=== PATIENT | female | born 1960 | race Caucasian/White ===

== ENCOUNTER → 2017-08-25 16:48 | Outpatient (CLI) | payer OTHER, SELFPAY ==
--- NOTE | 2017-08-25 16:53 | MM_ITS ---
MM Dig screening mamm BI w/CAD CAD Screening COMPARISON: Digital mammograms 08/19/2016 and 08/13/2015 INDICATION: There is no personal or family history of breast cancer TECHNIQUE: Standard CC and MLO images were obtained. R2 CAD reviewed. FINDINGS: Moderate scattered fibroglandular densities are seen in both breast and the findings are bilateral and symmetrical. There are few benign-appearing calcination is in each breast. There is no suspicious lesion and there are no suspicious microcalcifications. IMPRESSION: Fibrofatty parenchyma with no suspicious lesion seen recommend yearly follow-up BI-RADS Category: 2 Benign Finding(s) RECOMMENDED FOLLOW-UP: 1YR - 1 YEAR FOLLOW-UP (A letter has been sent to the patient regarding results of the study.)
== END ==
PROVIDERS: Family Provider Internal Medicine Adolescent Medicine; PCP Obstetrics & Gynecology Gynecology; Visit Provider Obstetrics & Gynecology Gynecology
DX: Z12.31 Encounter for screening mammogram for malignant neoplasm of breast (principal)
CPT/HCPCS: 77067

== ENCOUNTER 2018-02-04 15:00 | Outpatient (RCR) | payer BC, SELFPAY | END 2018-02-04 15:01 | disposition home or self-care (01) | LOC: PT 15:00 | PROVIDERS: Visit Provider Internal Medicine Adolescent Medicine | DX: M54.31 Sciatica, right side (principal) | CPT/HCPCS: 97010; 97012; 97014; 97033; 97035; 97110; 97140; 97163; G0283 ==

== ENCOUNTER → 2018-02-22 16:30 | Outpatient (CLI) | payer BC, SELFPAY ==
--- NOTE | 2018-02-22 16:36 | XR_ITS ---
EXAM: XR lumbar spine min 4V HISTORY: Right-sided hip and back pain ORDERING PHYSICIAN: Peter Olson MD PATIENT AGE: 57 years COMPARISON: None FINDINGS: Minimal dextro scoliosis of the lumbar spine. Facet arthritic changes are present at L4-5 and L5-S1. No fracture or dislocation. No lytic changes. There is degenerative disc disease at L5-S1 with 10 mm anterolisthesis of L5. IMPRESSION: Lumbar spondylosis with facet arthritic change and degenerative disc disease as described above with 10 mm anterolisthesis of L5 on S1
== END ==
PROVIDERS: PCP Internal Medicine Adolescent Medicine; Visit Provider Internal Medicine Adolescent Medicine
DX: M54.31 Sciatica, right side (principal)
CPT/HCPCS: 72110

== ENCOUNTER → 2018-08-29 14:59 | Outpatient (CLI) | payer BC, SELFPAY ==
--- NOTE | 2018-08-29 15:03 | MM_ITS ---
MM Dig screening mamm BI w/CAD CAD Screening COMPARISON: Digital mammograms with CAD 08/25/2017 and 08/19/2016 INDICATION: There is no personal or family history of breast cancer TECHNIQUE: Standard CC and MLO images were obtained. R2 CAD reviewed. FINDINGS: Moderate fibroglandular densities are seen in the central portions of both breasts and the findings are bilateral and symmetrical. There are few benign-appearing microcalcifications right breast. There is no suspicious lesion and there are no suspicious microcalcifications IMPRESSION: Stable exam with no suspicious lesion seen BI-RADS Category: 2 Benign Finding(s) RECOMMENDED FOLLOW-UP: 1YR - 1 YEAR FOLLOW-UP (A letter has been sent to the patient regarding results of the study.)
== END ==
PROVIDERS: PCP Internal Medicine Adolescent Medicine; Visit Provider Obstetrics & Gynecology Gynecology
DX: Z12.31 Encounter for screening mammogram for malignant neoplasm of breast (principal)
CPT/HCPCS: 77067

== ENCOUNTER 2019-01-07 17:13 | Outpatient (CLI) | payer BC, SELFPAY ==
--- NOTE | 2019-01-07 17:16 | PC.NURSE ---
HERE FOR TETNUS INJECTION AFTER SCRATCHING ARM ON A OLD NADINE FENCE
[2019-01-07 17:17] VITALS: BMI 23.6
== END 2019-01-07 17:25 | disposition home or self-care (01) ==
LOC: UTC.OUT 17:15
PROVIDERS: PCP Internal Medicine Adolescent Medicine; Visit Provider Nurse Practitioner
DX: Z23 Encounter for immunization (principal)
CPT/HCPCS: 90715

== ENCOUNTER → 2019-09-07 14:30 | Outpatient (CLI) | payer BC, SELFPAY ==
--- NOTE | 2019-09-07 14:35 | MM_ITS ---
PROCEDURE: MM DIG SCREENING MAMM BI W/CAD CLINICAL INDICATION: SCREENING There is no personal or family history of breast cancer COMPARISON: [facility] DIG MAMM-SCREEN SUKUMAR W/CAD from 08/19/2016 [facility] MM Dig screening mamm BI w/CAD from 08/25/2017 [facility] MM Dig screening mamm BI w/CAD from 08/29/2018 TECHNIQUE: Standard CC and MLO images and 3D Tomosynthesis was obtained. R2 CAD reviewed. FINDINGS: Moderate fibroglandular densities are seen in the central portions of both breasts. There is a benign-appearing calcification right breast. Javier images were reviewed. There is no suspicious lesion and no suspicious microcalcifications. IMPRESSION: Fibrofatty parenchyma with no suspicious lesions seen BI-RAD Category: 1 Negative FOLLOW-UP: 1YR 1 Year Follow-up (A letter has been sent to the patient regarding results of the study.) Dictated by: Dr. Melvin Pimentel MD 09/09/2019 20:[address] Melvin Pimentel MD in [place] 09/09/2019 20:51
--- NOTE | 2019-09-07 14:36 | XR_ITS ---
PROCEDURE: XR DEXA AXIAL SKELETON CLINICAL HISTORY: POST MENOPAUSAL COMPARISON: No exams were available for comparison FINDINGS: Osteopenia of the left wrist with BM D 33 percent at 0.621 grams/centimeters sq with a T-score of -1.2 Osteopenia of the left femoral neck with a BMD of 0.598 grams/centimeters sq and a T-score -2.3 Osteopenia of the right femoral neck with a BMD of 0.578 grams/centimeters sq and a T-score of -2.4 IMPRESSION: Osteopenia with moderate fracture risk. Treatment advised. Suggest follow-up exam in 2 years Dictated by: Breezy Vasquez MD 09/07/2019 15:27 Electronically signed by Breezy Vasquez MD in [place] 09/07/2019 15:27
== END ==
PROVIDERS: PCP Internal Medicine Adolescent Medicine; Visit Provider Obstetrics & Gynecology Gynecology
DX: Z12.31 Encounter for screening mammogram for malignant neoplasm of breast (principal); Z13.820 Encounter for screening for osteoporosis
CPT/HCPCS: 77063; 77067; 77080

== ENCOUNTER 2020-09-20 11:04 | Emergency (ER) | payer BC, SELFPAY ==
[2020-09-20 11:19] VITALS: BP 110/77; PULSE 71; RESP 19; TEMP 36.8; O2SAT 99; BMI 23.9
--- NOTE | 2020-09-20 11:20 | HMH.EDUTC ---
[facility] [place] Disposition Clinical Impression: TMJ (dislocation of temporomandibular joint) Qualifiers: Encounter type: initial encounter Qualified Code(s): S03.00XA - Dislocation of jaw, unspecified side, initial encounter Sinusitis Qualifiers: Sinusitis location: maxillary Chronicity: acute Recurrence: non-recurrent Qualified Code(s): J01.00 - Acute maxillary sinusitis, unspecified Disposition: Home, Self-Care Condition on Discharge: Good Instructions: DI for Sinusitis, DI for Temporomandibular Disorder Additional Instructions: Follow up with Dr Olson if not improving Prescriptions: Amoxicillin [Amoxicillin 875MG Tab] 875 mg PO Q12H #20 tab Transmission Status: [facility] methylPREDNISolone [Medrol 4mg tab] 4 mg PO DIRECTED #21 tab Transmission Status: Pending to [facility] Referrals: Peter Olson MD [Primary Care Provider] - Time of Disposition: 11:28 Medical Decision Making - Travis Inquiry Pt receiving controlled substance: No [facility] [place] HPI - General Stated complaint: ear and jaw pain Time Seen by Provider: 09/20/20 11:24 - History of Present Illness Provider Complaint: Right ear/jaw/sinus pain X 3 days. Started 3 nights ago when she laid down. Went to dentist the next day and he thinks she might be grinding her teeth. She also has been taking OTC sinus meds with a little relief. Onset (ago): day(s) (3) Location: mouth Exacerbating factors: eating Associated symptoms: denies other symptoms Treatments prior to arrival: none - Related Data Home Medications Medication Instructions Recorded Confirmed escitalopram oxalate 10 mg tablet 10 mg PO ONCE 01/13/18 03/08/18 levothyroxine 88 mcg capsule 88 mcg PO ONCE 01/13/18 03/08/18 Gabapentin [Gabapentin 100mg Cap] 100 mg PO BID 03/08/18 03/08/18 raNITIdine HCL [Ranitidine HCl] 150 mg PO DAILY 03/08/18 03/08/18 Previous Rx's Medication Instructions Recorded Cefpodoxime Proxetil 200 mg PO BID #20 tab 03/08/18 Phenazopyridine HCl [Pyridium 200 mg PO TID PRN #6 tab 03/08/18 200mg Tablet] Amoxicillin [Amoxicillin 875MG 875 mg PO Q12H #20 tab 09/20/20 Tab] methylPREDNISolone [Medrol 4mg 4 mg PO DIRECTED #21 tab 09/20/20 tab] Allergies Allergy/AdvReac Type Severity Reaction Status Date / Time ciprofloxacin [From Cipro] Allergy Verified 01/13/18 12:04 Sulfa (Sulfonamide Allergy hives Verified 01/13/18 12:04 Antibiotics) [facility] History - Hepatitis A Screen Attestation statement:: This patient has been screened for Hepatitis A risk factors. I have reviewed the patient's past medical history: Yes Medical History: Reports:: Urinary Tract Infection Denies:: Diabetes Mellitus Type 2, Hypertension Other Medical History: Reports: Thyroid Disease Other Surgeries: Yes: Cholecystectomy, Thyroidectomy, Tubal Ligation, Other (gallbladder surgery) - Social History Smoking Status: Never smoker Alcohol Intake: never Family Hx:: No significant family history ROS Obtained: Yes All systems reviewed & no additional complaints - ENT Ears, Nose, Mouth, and Throat: Reports otalgia, Reports sinus pain Physical Exam - General General appearance: alert, in no apparent distress - Head Head exam: normocephalic - Eye Eye exam: Present: PERRL - Expanded ENT Exam TM/Canal exam: Bilateral TM: effusion Nose exam: Present: sinus tenderness (right maxilary) Mouth exam: Present: other (right TMJ tenderness with opening) Teeth exam: Present: normal inspection - Neck Neck exam: Absent: lymphadenopathy - Chest Chest inspection: Present: normal inspection - Respiratory Respiratory exam: Present: normal lung sounds bilaterally - Cardiovascular Cardiovascular exam: Present: regular rate, normal rhythm - Neurological Exam Neurological exam: Present: alert, oriented X3 - Psychiatric Psychiatric exam: Present: normal affect, normal mood - Skin Skin exam: Present: warm, dry
[2020-09-20 11:32] VITALS: BP 110/77; PULSE 71; RESP 19; TEMP 36.8; O2SAT 99
== END 2020-09-20 11:33 | disposition home or self-care (01) ==
PROVIDERS: Emergency Provider Physician Assistant; PCP Internal Medicine Adolescent Medicine
DX: S03.01XA Dislocation of jaw, right side, initial encounter (principal); J01.00 Acute maxillary sinusitis, unspecified; E03.9 Hypothyroidism, unspecified; Z88.2 Allergy status to sulfonamides
CPT/HCPCS: 99202; G0463

== ENCOUNTER → 2020-10-22 15:18 | Outpatient (CLI) | payer BC, SELFPAY ==
--- NOTE | 2020-10-22 15:20 | MM_ITS ---
PROCEDURE: MM DIG SCREENING MAMM BI W/CAD Digital Breast Tomosynthesis Included CLINICAL INDICATION: SCREENING There is a history of breast cancer patient's mother diagnosed after menopause. COMPARISON: MG [facility] MM Dig screening mamm BI w/CAD from 08/25/2017 [facility] MM Dig screening mamm BI w/CAD from 08/29/2018 MG MM DIG SCREENING MAMM BI W/CAD from 09/07/2019 TECHNIQUE: Standard CC and MLO images and 3D Tomosynthesis was obtained. R2 CAD reviewed. FINDINGS: Moderate fibroglandular densities are seen in the central portions of both breasts and the findings are bilateral and symmetrical. There are no CAD markings. There are few benign-appearing microcalcifications in each breast. There is no suspicious lesion and no suspicious microcalcifications. IMPRESSION: Moderate breast density with no suspicious lesions seen BI-RAD Category: 2 Benign Finding(s) FOLLOW-UP: 1YR 1 Year Follow-up (A letter has been sent to the patient regarding results of the study.) Dictated by: Dr. Melvin Pimentel MD 10/29/2020 16:19 Dr. Melvin Pimentel MD in [place] 10/29/2020 16:19
== END ==
PROVIDERS: PCP Internal Medicine Adolescent Medicine; Visit Provider Obstetrics & Gynecology Gynecology
DX: Z12.31 Encounter for screening mammogram for malignant neoplasm of breast (principal)
CPT/HCPCS: 77063; 77067

== ENCOUNTER 2021-05-08 13:19 | Emergency (ER) | payer BC, SELFPAY ==
[2021-05-08 13:28] VITALS: BP 129/80; PULSE 65; RESP 16; TEMP 36.9; O2SAT 100; BMI 25.7
--- NOTE | 2021-05-08 14:43 | HMH.EDUTC ---
[facility] [place] Disposition Clinical Impression: Serous otitis media Qualifiers: Chronicity: acute Laterality: bilateral Recurrence: non-recurrent Qualified Code(s): H65.03 - Acute serous otitis media, bilateral Disposition: Home, Self-Care Condition on Discharge: Good Instructions: Middle Ear Infection Additional Instructions: Drink plenty of fluids. Take tylenol or ibuprofen for pain or fever. Take the medications as directed. Follow up with your regular doctor. GO TO THE ER FOR ANY WORSENING SYMPTOMS Prescriptions: methylPREDNISolone [Medrol] 4 mg PO DIRECTED 6 Days #21 packet Transmission Status: Received by [facility] Azithromycin [Z-Jacky 250mg Tab*] 250 mg PO UD DOSE PK #6 tab Transmission Status: Received by [facility] Referrals: Peter Olson MD [Primary Care Provider] - Time of Disposition: 14:47 Medical Decision Making - Medical Records Medical records reviewed: No: I reviewed the patient's medical records. - Travis Inquiry Pt receiving controlled substance: No Vital Signs: 05/08/21 13:28 05/08/21 14:54 Temperature 98.5 F 98.5 F Temperature Source Oral Pulse Rate 65 Pulse Rate [Left] 65 Respiratory Rate 16 18 Blood Pressure 129/80 Blood Pressure [Right Arm] 129/80 Blood Pressure Mean [Right Arm] 96 02 Sat by Pulse Oximetry 100 [facility] [place] HPI - General Stated complaint: left ear ache Time Seen by Provider: 05/08/21 14:43 Mode of Arrival: Ambulatory Source of Information: Patient Limitations: No Limitations Description of Symptoms (Recalled from Triage Doc. by RN): pt c/o a L ear ache x2 days HEENT Symptoms (Recalled from RN notes): Yes (L ear ache) Resp Symptoms (Recalled from RN notes): No Skin Symptoms (Recalled from RN notes): No MS Symptoms (Recalled from RN notes): No Functional Status (Recalled from RN notes): na - History of Present Illness Provider Complaint: She c/o left ear pain for the past 3 days. She also states that sometimes the her ear has sounded muffled. She denies any fever or chills. She has been having some runny nose and post nasal drainage the she attributes to allergies. - Related Data Home Medications Medication Instructions Recorded Confirmed escitalopram oxalate 10 mg tablet 10 mg PO ONCE 01/13/18 03/08/18 levothyroxine 88 mcg capsule 88 mcg PO ONCE 01/13/18 03/08/18 Gabapentin [Gabapentin 100mg Cap] 100 mg PO BID 03/08/18 03/08/18 raNITIdine HCL [Ranitidine HCl] 150 mg PO DAILY 03/08/18 03/08/18 Previous Rx's Medication Instructions Recorded Cefpodoxime Proxetil 200 mg PO BID #20 tab 03/08/18 Phenazopyridine HCl [Pyridium 200 mg PO TID PRN #6 tab 03/08/18 200mg Tablet] Amoxicillin [Amoxicillin 875MG 875 mg PO Q12H #20 tab 09/20/20 Tab] methylPREDNISolone [Medrol 4mg 4 mg PO DIRECTED #21 tab 09/20/20 tab] Azithromycin [Z-Jacky 250mg Tab*] 250 mg PO UD DOSE PK #6 tab 05/08/21 methylPREDNISolone [Medrol] 4 mg PO DIRECTED 6 Days #21 05/08/21 packet Allergies Allergy/AdvReac Type Severity Reaction Status Date / Time ciprofloxacin [From Cipro] Allergy Verified 01/13/18 12:04 Sulfa (Sulfonamide Allergy hives Verified 01/13/18 12:04 Antibiotics) - Worker's Comp Is this a Worker's Comp case?: No H History - Hepatitis A Screen Drug use history?: No High risk sexual behaviors?: No History of sexually transmitted infection?: No Currently employed?: No Childcare worker?: No Do you have indoor plumbing?: Yes Do you have electricity?: Yes Attestation statement:: This patient has been screened for Hepatitis A risk factors. I have reviewed the patient's past medical history: Yes Medical History: Reports:: Cancer (thyroid), Urinary Tract Infection Denies:: Diabetes Mellitus Type 2, Hypertension Other Medical History: Reports: Thyroid Disease Other Surgeries: Yes: Cholecystectomy, Thyroidectomy, Tubal Ligation, Other (gallbladder surgery) - Social History Smoking Sta
[2021-05-08 14:54] VITALS: BP 129/80; PULSE 65; RESP 18; TEMP 36.9
== END 2021-05-08 14:56 | disposition home or self-care (01) ==
PROVIDERS: Emergency Provider Nurse Practitioner Family; PCP Internal Medicine Adolescent Medicine
DX: H65.03 Acute serous otitis media, bilateral (principal); Z85.850 Personal history of malignant neoplasm of thyroid
CPT/HCPCS: 99202; G0463

== ENCOUNTER → 2021-07-03 08:00 | Outpatient (CLI) | payer BC, SELFPAY ==
[2021-07-03 08:57] LABS: Basophils # 0.1 K/mm3 (0-0.2); Eosinophils # 0.3 K/mm3 (0.0-0.4); Eosinophils % 4.6 % (0.1-12.0); Hematocrit 39.2 % (37.0-47.0); Hemoglobin 13.1 g/dL (12.2-16.2); Lymphocytes % 37.1 % (10-50); Mean Corpuscular HGB Conc 33.4 g/dL (31.8-35.4); Mean Corpuscular Hemoglobin 30.7 pg (27.0-31.2); Mean Corpuscular Volume 91.9 fl (81-99); Monocytes # 0.3 K/mm3 (0.1-1.0); Monocytes % 5.3 % (1.7-9.3); Neutrophils # 2.8 K/mm3 (1.8-7.8); Neutrophils % 52.1 % (37.0-80.0); Platelet Count 283 K/mm3 (142-424); Red Blood Count 4.27 M/mm3 (4.20-5.40); Red Cell Distribution Width 13.4 % (11.5-17.5); White Blood Count 5.4 K/mm3 (4.8-10.8)
[2021-07-03 09:39] LABS: Alanine Aminotransferase 25 U/L (12-78); Albumin Level 4.2 g/dl (3.5-5.0); Albumin/Globulin Ratio 1.8 (1.1-1.8); Alkaline Phosphatase 81 U/L (38-126); Anion Gap 6.9 mEq/L (5-15); Aspartate Amino Transferase 34 U/L (14-36); Bilirubin,Total 0.3 mg/dl (0.2-1.3); Blood Urea Nitrogen 19 mg/dl (7-17); Calcium 9.7 mg/dl (8.4-10.2); Carbon Dioxide 27 mmol/L (22.0-30.0); Chloride 108 mmol/L (98-107); Chol/HDL Ratio 3.1 (1-3.5); Cholesterol 235 mg/dl (140-200); Estimated Glomerular Filt Rate 73 ml/min (>60); GFR (African American) 88 ML/MIN (>60); Globulin 2.3 g/dL (1.3-3.2); Glucose 95 mg/dl (74-100); HDL Cholesterol 77 mg/dl (40-60); Potassium 4.9 mmoL/L (3.5-5.1); Sodium 137 mmol/L (136-145); Total Protein,Serum 6.5 g/dl (6.3-8.2); Triglycerides 162 mg/dl (30-150); VLDL Cholesterol 32 mg/dL (0-40)
[2021-07-03 09:51] LABS: Direct LDL Cholesterol 49.78 mg/dL (100-129)
[2021-07-03 09:57] LABS: T4 (Thyroxine) 9.7 ug/dl (5.53-11.0); Triiodothryronine (T3) Uptake 31 % (23.5-40.5)
[2021-07-03 10:10] LABS: Thyroid Stimulating Hormone 0.29 uIU/mL (0.465-4.68)
[2021-07-04 13:18] LABS: RA Latex Turbid. <10.0 IU/mL (<14.0)
[2021-07-05 00:08] LABS: Anti-Cyclic Citrullinated Pept 6 units (0-19)
== END ==
PROVIDERS: Visit Provider Internal Medicine Adolescent Medicine
DX: E89.0 Postprocedural hypothyroidism (principal); E78.5 Hyperlipidemia, unspecified; M12.9 Arthropathy, unspecified
CPT/HCPCS: 36415; 80053; 80061; 84436; 84443; 84479; 85025; 86200; 86431

== ENCOUNTER → 2021-10-27 13:27 | Outpatient (CLI) | payer BC, SELFPAY ==
--- NOTE | 2021-10-27 13:31 | MM_ITS ---
PROCEDURE INFORMATION: Exam: MG Bilateral Screening 3D Mammography Exam date and time: 10/27/2021 1:33 PM Age: 61 years old Clinical indication: Screening examination. Her mother breast cancer at age 84. TECHNIQUE: Imaging protocol: Bilateral Screening tomosynthesis and 2D mammography including computer-aided detection (CAD) when performed. COMPARISON: 1. MG MM DIG SCREENING MAMM BI W/CAD 10/22/2020 3:29 PM 2. MG MM DIG SCREENING MAMM BI W/CAD 09/07/2019 2:49 PM 3. MG [facility] MM Dig screening mamm BI w/CAD 08/29/2018 3:20 PM 4. MG [facility] MM Dig screening mamm BI w/CAD 08/25/2017 4:57 PM FINDINGS: MAMMOGRAPHY: Breast composition: The breast tissue is heterogeneously dense, which may obscure small masses. Mass: None. Architectural distortion: None. Calcifications: No suspicious calcifications. Asymmetric density: None. Skin thickening: None. Axillary adenopathy: None. IMPRESSION: No mammographic evidence of malignancy. Annual screening is recommended unless otherwise clinically indicated. ASSESSMENT: BI-RADS Category 1: Negative
== END ==
PROVIDERS: PCP Internal Medicine Adolescent Medicine; Visit Provider Obstetrics & Gynecology Gynecology
DX: Z12.31 Encounter for screening mammogram for malignant neoplasm of breast (principal)
CPT/HCPCS: 77063; 77067

== ENCOUNTER → 2022-01-06 09:05 | Outpatient (CLI) | payer BC, SELFPAY ==
[2022-01-06 10:07] LABS: Basophils # 0.1 K/mm3 (0-0.2); Basophils % 1.4 % (0.1-2.0); Eosinophils # 0.3 K/mm3 (0.0-0.4); Hematocrit 40.9 % (37.0-47.0); Hemoglobin 13.6 g/dL (12.2-16.2); Lymphocytes # 1.6 K/mm3 (0.7-4.5); Mean Corpuscular HGB Conc 33.2 g/dL (31.8-35.4); Mean Corpuscular Hemoglobin 30.4 pg (27.0-31.2); Mean Corpuscular Volume 91.8 fl (81-99); Mean Platelet Volume 8.4 fl (7.4-10.4); Monocytes # 0.3 K/mm3 (0.1-1.0); Neutrophils # 2.7 K/mm3 (1.8-7.8); Neutrophils % 54.7 % (37.0-80.0); Platelet Count 284 K/mm3 (142-424); Red Blood Count 4.46 M/mm3 (4.20-5.40); Red Cell Distribution Width 13.7 % (11.5-17.5); White Blood Count 4.9 K/mm3 (4.8-10.8)
[2022-01-06 10:19] LABS: Chloride 110 mmol/L (98-107); Potassium 4.3 mmoL/L (3.5-5.1); Sodium 139 mmol/L (136-145)
[2022-01-06 10:21] LABS: Blood Urea Nitrogen 20 mg/dl (7-17); Estimated Glomerular Filt Rate 73 ml/min (>60); GFR (African American) 88 ML/MIN (>60)
[2022-01-06 10:22] LABS: Alanine Aminotransferase 36 U/L (12-78); Albumin Level 4.2 g/dl (3.5-5.0); Albumin/Globulin Ratio 1.8 (1.1-1.8); Alkaline Phosphatase 91 U/L (38-126); Anion Gap 12.3 mEq/L (5-15); Aspartate Amino Transferase 38 U/L (14-36); Bilirubin,Total 0.3 mg/dl (0.2-1.3); Calcium 9.5 mg/dl (8.4-10.2); Carbon Dioxide 21 mmol/L (22.0-30.0); Chol/HDL Ratio 3.1 (1-3.5); Cholesterol 226 mg/dl (140-200); Globulin 2.4 g/dL (1.3-3.2); Glucose 111 mg/dl (74-100); HDL Cholesterol 72 mg/dl (40-60); Total Protein,Serum 6.6 g/dl (6.3-8.2); Triglycerides 96 mg/dl (30-150); VLDL Cholesterol 19 mg/dL (0-40)
[2022-01-06 10:33] LABS: Direct LDL Cholesterol 56.35 mg/dL (100-129)
[2022-01-06 10:44] LABS: 25-OH Vitamin D, Total 43.1 ng/mL (30-100)
== END ==
PROVIDERS: PCP Internal Medicine Adolescent Medicine; Visit Provider Internal Medicine Adolescent Medicine
DX: E89.0 Postprocedural hypothyroidism (principal); E87.5 Hyperkalemia; E55.9 Vitamin D deficiency, unspecified; M12.9 Arthropathy, unspecified
CPT/HCPCS: 36415; 80053; 80061; 82306; 84443; 85025

== ENCOUNTER 2022-11-13 06:25 | Day surgery (SDC) | payer BC, SELFPAY ==
[2022-11-10 10:47] VITALS: BMI 27.4
[2022-11-13 06:45] VITALS: BP 140/83; PULSE 76; RESP 18; TEMP 37.1; O2SAT 98
[2022-11-13 07:24] VITALS: O2SAT 98
--- NOTE | 2022-11-13 07:24 | P.PN_ITS ---
[facility] Disclaimer: The information contained in this section may have been updated after the patient was seen, as this information can be updated by other users. Medical History Allergies Anxiety Arthritis Depression Fibromyalgia Hemorrhoid History of cataract History of COVID-19 Hyperlipidemia Hypothyroid Irritable bowel syndrome (IBS) Palpitations Pneumonia Sinus headache Thyroid cancer Urinary tract infection Surgical History H/O foot surgery H/O thyroidectomy History of back surgery Hx of cholecystectomy Hx of tubal ligation Family History Mother Breast cancer Father COPD (chronic obstructive pulmonary disease) Asthma Prostate cancer Social History Smoking Status: Never smoker alcohol intake: never substance use type: denies use current occupational status: unemployed Travel in the last 8 weeks: None [facility] Anesthesia Checklist Patient Identification Patient Identification: Arm Band Structural Data Admitted From: Home Planned Operative Procedure/s: colonoscopy Consent for Planned Operative Procedure(s) Verified: Yes Verified Documents: Surgical Consent and History and Physical NPO Status Verified Time NPO: 00:00 Additional verifications Anesthesia Reactions: No Airway Assessment C-Spine Mobility Assessed: Yes TMJ Mobility Assessed: Yes Dentition: Good Dentition Neurological Assessment Level of Consciousness: Awake and Alert Anesthesia Plan Anesthesia Risk discussed: Yes Anesthesia Plan: Verified ASA Class: II Anesthesia Type: MAC
--- NOTE | 2022-11-13 07:55 | HMH.SCOPE ---
Procedure: Date: 11/13/22 Patient Date of :: 1960 Procedure Performed:: Total colonoscopy to terminal ileum Indications:: Patient is a 62-year-old female. I had previously performed colonoscopy on her in 2012 for screening purposes which revealed no adenomatous polyps Performing Provider:: Perry Archuleta MD Referring Provider:: Peter Olson MD Sedation:: MAC sedation Procedure:: Patient history was obtained and appropriate physical examination was performed. Patient's medications and allergies were reviewed. Informed consent was obtained after explaining the benefits, alternatives, and risks of the procedure including, but not limited to, bleeding, perforation, missed lesions, and adverse reaction to anesthesia medications. Patient was transported to endoscopy procedure room. Patient was connected to monitoring devices. Throughout the procedure the patient's blood pressure, pulse, and oxygen saturations were monitored continuously. Patient identification and planned procedure were verified by the staff. Patient was positioned in lateral decubitus position. Digital anorectal exam was performed. Variable stiffness Olympus colonoscope was inserted and advanced under direct visualization to the cecum. Adequacy of the colonic preparation was noted. The colonoscope was advanced a short distance into the terminal ileum. The colonoscope was then slowly withdrawn while carefully examining the color, texture, anatomy, and integrity of the mucosoa circumferentially. Colonoscope was then withdrawn. Colonic preparation was excellent. Colon was normal throughout including terminal ileum. There was a possible polyp in the sigmoid colon versus lymphoid aggregate. With multiple times reinserting and withdrawing the colonoscope no polyp was noted. There were findings consistent with beginnings of sigmoid diverticulosis. Findings:: Essentially normal colonoscopy Recommendations:: Repeat colonoscopy up to 10 years unless otherwise indicated Complications:: None immediately apparent Estimated blood obtained (mL): 0
[2022-11-13 07:58] VITALS: BP 116/72; PULSE 80; RESP 15; TEMP 36.5; O2SAT 99
[2022-11-13 08:08] VITALS: BP 132/74; PULSE 62; RESP 17; O2SAT 99
[2022-11-13 08:18] VITALS: BP 130/82; PULSE 60; RESP 17; O2SAT 100
[2022-11-13 08:28] VITALS: BP 130/82; PULSE 60; RESP 17; O2SAT 100
== END 2022-11-13 08:29 | disposition home or self-care (01) ==
PROVIDERS: PCP Internal Medicine Adolescent Medicine; Visit Provider Surgery
PROC: 0DJD8ZZ Inspection of Lower Intestinal Tract, Via Natural or Artificial Opening Endoscopic (ICD-10-PCS; CPT 45378; principal; 2022-11-13 07:30)
DX: Z12.11 Encounter for screening for malignant neoplasm of colon (principal); Z79.899 Other long term (current) drug therapy
CPT/HCPCS: 45378; J2704

== ENCOUNTER → 2022-11-17 14:58 | Outpatient (CLI) | payer BC, SELFPAY ==
--- NOTE | 2022-11-17 15:01 | MM_ITS ---
PROCEDURE INFORMATION: Exam: MG Bilateral Screening 3D Mammography Exam date and time: 11/17/2022 3:26 PM Age: 62 years old Clinical indication: Screening mammogram TECHNIQUE: Imaging protocol: Bilateral Screening tomosynthesis and 2D mammography including computer-aided detection (CAD) when performed. COMPARISON: 1. MG MM DIG SCREENING MAMM BI W/CAD 10/27/2021 1:33 PM 2. MG MM DIG SCREENING MAMM BI W/CAD 10/22/2020 3:29 PM 3. MG MM DIG SCREENING MAMM BI W/CAD 09/07/2019 2:49 PM 4. MG [facility] MM Dig screening mamm BI w/CAD 08/29/2018 3:20 PM FINDINGS: MAMMOGRAPHY: Breast composition: There are scattered areas of fibroglandular density. Mass: None. Architectural distortion: No new or suspicious architectural distortion. Calcifications: No new or suspicious calcifications are present Asymmetric density: No new or suspicious asymmetric density is present Skin thickening: None. Axillary adenopathy: None. IMPRESSION: No mammographic evidence of malignancy. Recommend annual screening mammography unless otherwise clinically indicated. ASSESSMENT: BI-RADS category 1: Negative
== END ==
PROVIDERS: PCP Internal Medicine Adolescent Medicine; Visit Provider Obstetrics & Gynecology Gynecology
DX: Z12.31 Encounter for screening mammogram for malignant neoplasm of breast (principal)
CPT/HCPCS: 77063; 77067

== ENCOUNTER 2024-01-05 14:47 | Outpatient (CLI) | payer BC, SELFPAY ==
--- NOTE | 2024-01-05 14:53 | MM_ITS ---
PROCEDURE INFORMATION: Exam: MG Bilateral Screening 3D Mammography Exam date and time: 01/05/2024 2:52 PM Age: 63 years old Clinical indication: Screening examination TECHNIQUE: Imaging protocol: Bilateral Screening tomosynthesis and 2D mammography including computer-aided detection (CAD) when performed. COMPARISON: 1. MG MM DIG SCREENING MAMM BI W/CAD 11/17/2022 3:26 PM 2. MG MM DIG SCREENING MAMM BI W/CAD 10/27/2021 1:33 PM FINDINGS: MAMMOGRAPHY: Breast composition: There are scattered areas of fibroglandular density. Mass: None. Architectural distortion: None. Calcifications: No suspicious calcifications. Asymmetric density: None. Skin thickening: None. Axillary adenopathy: None. IMPRESSION: No mammographic evidence of malignancy. Annual screening is recommended unless otherwise clinically indicated. ASSESSMENT: BI-RADS Category 1: Negative
== END 2024-01-05 23:59 | disposition home or self-care (01) ==
LOC: RAD 14:48
PROVIDERS: PCP Internal Medicine Adolescent Medicine; Visit Provider Obstetrics & Gynecology Gynecology
DX: Z12.31 Encounter for screening mammogram for malignant neoplasm of breast (principal)
CPT/HCPCS: 77063; 77067

== ENCOUNTER 2024-02-02 15:23 | Outpatient (CLI) | payer BC, SELFPAY ==
--- NOTE | 2024-02-02 15:28 | XR_ITS ---
FINAL REPORT CLINICAL HISTORY: SCREENING COMPARISON: None FINDINGS: Using 07/28, the bone mineral density of the right forearm is 0.595 g/cm2, corresponding to T-score of -1.7 which is consistent with low bone density. Using the left hip, the bone mineral density of the femoral neck is 0.600 g/cm2, corresponding to a T-score of -2.2 which is consistent with low bone density. Using the right hip, the bone mineral density of the femoral neck is 0.678 g/cm2, corresponding to a T-score of -1.5 which consistent with low bone density. FRAX is not reported because the patient is being treated for osteoporosis. NOTE: T-score: Standard deviation compared with peak bone mass of young adult mean. *Following the recommendations of the International Society of Bone densitometry, classification of hip BMD is based on the lower of two T-scores; total hip or femoral neck. IMPRESSION: Diminished bone mineral density consistent with low bone density. Reviewed, Interpreted and Dictated by Perry Rogers III, MD Transcribed by Brittaney Person Authenticated and [facility]
== END 2024-02-02 23:59 | disposition home or self-care (01) ==
LOC: RAD 15:24
PROVIDERS: PCP Internal Medicine Adolescent Medicine; Visit Provider Obstetrics & Gynecology Gynecology
DX: Z13.820 Encounter for screening for osteoporosis (principal); M85.89 Other specified disorders of bone density and structure, multiple sites
CPT/HCPCS: 77080

== ENCOUNTER 2024-07-28 07:37 | Outpatient (CLI) | payer BC, SELFPAY ==
[2024-07-28 07:58] LABS: Basophils % 0.7 % (0.1-2.0); Eosinophils # 0.2 K/mm3 (0.0-0.4); Eosinophils % 4.2 % (0.1-12.0); Hematocrit 37.5 % (37.0-47.0); Hemoglobin 12.7 g/dL (12.2-16.2); Lymphocytes # 1.7 K/mm3 (0.7-4.5); Lymphocytes % 30.1 % (10-50); Mean Corpuscular HGB Conc 33.9 g/dL (31.8-35.4); Mean Corpuscular Hemoglobin 30.6 pg (27.0-31.2); Mean Corpuscular Volume 90.4 fl (81-99); Mean Platelet Volume 9.9 fl (7.4-10.4); Monocytes # 0.4 K/mm3 (0.1-1.0); Neutrophils # 3.1 K/mm3 (1.8-7.8); Neutrophils % 56.6 % (37.0-80.0); Platelet Count 255 K/mm3 (142-424); Red Blood Count 4.15 M/mm3 (4.20-5.40); White Blood Count 5.5 K/mm3 (4.8-10.8)
[2024-07-28 08:18] LABS: Alanine Aminotransferase 35 U/L (12-78); Albumin Level 4.3 g/dl (3.5-5.0); Alkaline Phosphatase 83 U/L (38-126); Aspartate Amino Transferase 39 U/L (14-36); Bilirubin,Total 0.6 mg/dl (0.2-1.3); Blood Urea Nitrogen 22 mg/dl (7-17); Calcium 9.7 mg/dl (8.4-10.2); Carbon Dioxide 23 mmol/L (22.0-30.0); Chloride 109 mmol/L (98-107); Chol/HDL Ratio 1.4 (1-3.5); Cholesterol 130 mg/dl (140-200); Estimated Glomerular Filt Rate 63 ml/min (>60); GFR (African American) 76 ML/MIN (>60); Globulin 2.2 g/dL (1.3-3.2); Glucose 100 mg/dl (74-100); HDL Cholesterol 90 mg/dl (40-60); Sodium 139 mmol/L (136-145); Total Protein,Serum 6.5 g/dl (6.3-8.2); Triglycerides 123 mg/dl (30-150); VLDL Cholesterol 25 mg/dL (0-40)
[2024-07-28 08:32] LABS: Direct LDL Cholesterol < 30.00 mg/dL (100-129)
[2024-07-28 08:34] LABS: 25-OH Vitamin D, Total 56.4 ng/mL (30-100)
[2024-07-28 08:36] LABS: Free Thyroxine Index 2.9 ug/dL (5.93-13.13); T4 (Thyroxine) 9.2 ug/dl (5.53-11.0); Triiodothryronine (T3) Uptake 32 % (23.5-40.5)
[2024-07-28 08:49] LABS: Thyroid Stimulating Hormone 1.07 uIU/mL (0.465-4.68)
[2024-07-28 09:09] LABS: Vitamin B12 342 pg/mL (239-931)
[2024-07-28 09:41] LABS: Anion Gap 11.6 mEq/L (5-15); Potassium 4.6 mmoL/L (3.5-5.1)
== END 2024-07-28 23:59 | disposition home or self-care (01) ==
LOC: LAB 07:40
PROVIDERS: PCP Internal Medicine Adolescent Medicine; Visit Provider Internal Medicine Adolescent Medicine
DX: E89.0 Postprocedural hypothyroidism (principal); E78.5 Hyperlipidemia, unspecified; E55.9 Vitamin D deficiency, unspecified
CPT/HCPCS: 36415; 80053; 80061; 82306; 82607; 84436; 84443; 84479; 85025

== ENCOUNTER 2025-01-10 13:22 | Outpatient (CLI) | payer BC, SELFPAY ==
--- OUTSIDE RECORDS SUMMARY | 2024-11-17 10:45 | XMS_ITS ---
Author Organization [facility] Address [address] [place] [address] Care Team Providers Care Security Systems Installer Name Role Phone Nicol Reed Unavailable [phone] Allergies Allergen (clinical drug ingredient) Drug/Non Drug Allergy documented on EMR Reaction Allergy Type Onset Date Status CIPRO (CIPROFLOXACIN HCL TABS) rash Drug Allergy 07/30/2017 Active sulfamethoxazole / trimethoprim SULFAMETHOXAZOLE-TR IMETHOPRIM hives Drug Allergy 08/08/2018 Active Results Component Value Reference Range Notes Pap w/reflex HPV Reviewed date:11/21/2024 05:03:24 PM Interpretation: Performing Lab:[facility] ED[place] CLIA ID [id number], [address], [address], [place] [address], Director - Ajit Regalado MD Notes/Report: Any Nucleic Acid Amplification testing is performed on the [email or web address] [place]. Diagnosis: Negative for intraepithelial lesion or malignancy. AP results FINAL PARKING CONTROL OFFICER CYTOLOGY REPORT DIAGNOSIS: Negative for intraepithelial lesion or malignancy. Specimen Adequacy: Satisfactory for interpretation with endocervical/transformat ion zone component absent, history noted. Pertinent Clinical History/History of Surgery: Not provided Collection Technique: [place]-Spatula Results of Last Pap: negative LMP: unknown Date of Last Pap: Not provided Specimen Source: Cervical/Endocervical Specimen Type: ThinPrep Other Gynecological Patient Information: Menopausal Recommendation: Follow-up based on current clinical guidelines and/or clinical consideration. Screening note: This specimen has been analyzed by the ThinPrep Imaging System, an interactive computer system which assists the lab in screening of ThinPrep Pap Test slides. Following imaging, the slide was reviewed by a Automotive Mechanic and/or Pathologist. Negative Educational Note: The pap screening test aids in the detection of premalignant and malignant states of the cervix. False positive and negative results may occur. It is not a diagnostic test. If abnormal cells are reported, follow-up based on current clinical guidelines and/or clinical consideration is recommended. Bibiana Altman Automotive Mechanic CPT Codes: 96574 ICD Codes: Z01.419 Reason For Referral Reason 07/19 Patient is int erested in intermediate risk MRI screening due after mammogram screening in Diagnosis 1 Family history of br east cancer in mother (Z80.3) Referral Organization [facility] Referring Provider First Name Nicol Referring Provider Last Name Brianna Referring Provider Speciality OB - Gynec ology Referral Priority Routine REASON FOR VISIT Annual Medications Medication SIG (Take, Route, Frequency, Duration) Notes Start Date End Date Status Levothyroxine Sodium 88 MCG Capsule 1 capsule in the morning on an empty stomach Orally Once a day Active Escitalopram Oxalate 10 MG Tablet TAKE ONE TABLET BY MOUTH EVERY DAY Oral; Duration: 90 Days Active Celecoxib 200 MG Capsule TAKE ONE CAPSUL E BY MOUTH TWICE DAILY Oral; Duration: 90 Days Active Alendronate Sodium 35 MG Tablet TAKE ONE TABLET BY MOUTH ONCE A WEEK Oral; Duration: 42 Days Active Rosuvastatin Calcium 10 MG Tablet Oral; Duration: 90 Days Acti ve Social History Tobacco Use: Social History Observation Description Date Details (start date - stop date) Former Smoker NA - NA Sex Assigned At : Social History Observation Description Sex Assigned At Female Social History Drugs/Alcohol: Social Info Question Answer Notes Drugs Have you used drugs other than those for medical reasons in the past 12 months? No Alcohol Screen Did you have a drink containing alcohol in the past year? No Points 0 Interpretation Negative Tobacco Use: Social Info Question Answer Notes Tobacco Use/Smoking Are you a former smoker Vital Signs Blood pressure systolic 126 mm Hg 11/18/19 25 Blood pressure diastolic 78 mm Hg 025 Height 65 in 11/17/2024 Weight 170 lbs 11/17/2024 BMI 28.29 kg/m2 11/17/2024 Encounters Encounter Location Date Provider Diagnosis [facility] [address] [address] 11/17/2024 Nicol Reed Screening mammogram for breast cancer Z12.31 ; Cervical smear, as part of routine gynecological examination Z01.419 and Family history of breast cancer in mother Z80.3 Assessments Encounter Date Diagnosis (ICD Code) Assessment Notes Treatment Notes Treatment Clinical Notes Section Notes 11/17/2024 Screening mammogram for breast cancer (ICD-10 - Z12.31) 11/17/2024 Cervical smear, as part of routine gynecological examination (ICD-10 - Z01.419) 11/17/2024 Family history of breast cancer in mother (ICD-10 - Z80.3) Patient is interested in intermediate risk MRI screening. Plan Of Treatment Treatment Notes Assessment Notes Family history of breast cancer in mothe r Patient is interested in intermediate risk MRI screening. Pending Test Test Name Order Date *Screen Mammo b/l w/ Javier and US if need ed per protocol 11/17/2024 Referrals Referral Date Details 11/17/2024 11/17/2024, 07/19 Pedro acevedo is interested in intermediate risk MRI screening due after mammogram screening in Next Appt Details Follow Up: 1 Year,prn, Reaso n: Annual Provider Name:Nicol Reed, 11/19/2025 02:45:00 PM, [address] [employer] [address] [address], [place], [address], History and Physical Notes * HPI (History of Present Illness) Category Sub-Category Detail Notes Category Not es General Health Maintenance Presents for annual exam with no PARKING CONTROL OFFICER complaints. Maternal history of triple negative breast cancer at 80 not felt to have a genetic link. She with metastatic breast cancer less than 2 years after diagnosis. Mammogram screening negative 01-05-2024, BI-RADS I. She plans f/u mammogram [facility] . She is questioning if she can get an MRI breast evaluation. She has no other family history for breast cancer. She is an intermediate risk for future breast cancer. Examination Category Sub-Category Detail Notes Category Not es Gynecological CERVIX: no lesions or di scharge or bleeding, normal appearing, without evidence of masses or lesions , PAP smear done VAGINA: no lesions, normal EXTERNAL GENITALIA: normal, no erythema, no skin discoloration UTERUS: normal mobility, non -tender, normal size, shape and consistency ADNEXA: no masses or tendern ess bilaterally URETHRA: normal, no masses, n on-tender URETHRAL MEATUS: normal BLADDER: normal General Examination GENERAL APPEARANCE: pleasant , well nourished, in no acute distress EYES: non icteric, no pall or NECK/THYROID: s/p thyroidectomy, n o thyromegaly or apparent thyroid nodules HEART: regular rate and rhy thm, no murmur, gallops, or rubs LUNGS: normal respiratory e ffort, clear to auscultation bilaterally ABDOMEN: soft, nontender, non distended, no masses or hepatosplenomegaly appreciated SKIN: BREASTS: nipples unremarkable , no axillary adenopathy, no dimpling, no masses palpable bilaterally, nontender, no nipple discharge, no skin changes LYMPH NODES: Gas Well Drilling Manager Gas Well Drilling Manager Status Gas Well Drilling Manager prese nt during physical exam. Name: Eddie Barreto Title: ENROLLMENT MANAGER Consultation Request Notes Referral Date Referring Provider Referred Provider Not es 11/17/2024 Nicol Reed , 07/19 Patient is interested in intermediate risk MRI screening due after mammogram screening in Progress Notes * Pat OSEI LDOB: [birth year] (64 yo F)Acc No.[id number]:11/17/2024 Progress Note Patient: Pat RAMÍREZ Marily Provider: Bebo Reed MD :1960 A ge:64 Y S ex:Female Date:11/17/2024 Address:[address] [place] [address] [address] [place], [place] Subjective: * Chief Complaints: * 1 . Annual. * HPI: G eneral Health Maintenance: Presents for annual exam with no PARKING CONTROL OFFICER complaints. Maternal history of triple negative breast cancer at 80 not felt to have a genetic link. She with metastatic breast cancer less than 2 years after diagnosis. Mammogram screening negative 01-05-2024, BI-RADS I. She plans f/u mammogram at [facility] . She is questioning if she can get an MRI breast evaluation. She has no other family history for breast cancer. She is an intermediate risk for future breast cancer. * ROS: G eneral/Constitutional: Change in weight d enies. F atigue d enies. F ever d enies. E NT: Difficulty swallowing d enies. S inus pain d enies.? E ndocrine: Excessive sweating d enies. E xcessive thirst d enies. T hyroid Problems d enies. R espiratory: Shortness of breath at rest d enies. S hortness of breath with exertion d enies. B reast: Breast lump d enies. B reast pain d enies. N ipple discharge d enies. C ardiovascular: Chest Pain d enies. C hest pain at rest d enies.?Dyspnea on exertion d enies. S hortness of breath d enies. G astrointestinal: Abdominal pain d enies. C hange in bowel habits d enies. E xposure to hepatitis d enies. G enitourinary: Abnormal vaginal bleeding d enies. D yspareunia d enies. F requent urination d enies. P ain in lower back d enies. P ainful urination d enies. P elvic Pain d enies. V aginal Discharge d enies. M usculoskeletal: Joint stiffness d enies. N italo pain d enies. P ain in shoulder(s) d enies. S kin: Rash d enies. S kin lesion(s) d enies. ? * Medical History: * Rn Clinical Research History: P ap Smear History: D ate of Last Pap/HPV: 0 L ast Pap/HPV Results: N ormal Pap C olon Cancer Screening History: D ate of last colon cancer screenin T ype of screening: C olonoscopy M enstrual History: C urrently having menstrual cycles? N o R ang for No Menses: P erimenopausal/Menopausal * OB History: P regnancy History (GPA) Total Pregnancies 2 Vaginal Deliveries 2 G P : 2 Para: 2 * Surgical History: * Hospitalization/Major Diagno stic Procedure: * Family History: M other: osteoarthritisdx with breast cancer at 80, diagnosed with Breast cancer, Heart disease. F ather: autoimmune disorder, diagnosed with Unspecified essential hypertension, Heart disease. * Social History: T obacco Use: T obacco Use/Smoking A re you a f ormer smoker D rugs/Alcohol: D rugs H ave you used drugs other than those for medical reasons in the past 12 months? N o Alcohol Screen D id you have a drink containing alcohol in the past year? N o P oints 0 I nterpretation N egative * Medications: T aking Alendronate Sodium 35 MG Tablet TAKE ONE TABLET BY MOUTH ONCE A WEEK Oral , Taking Celecoxib 200 MG Capsule TAKE ONE CAPSULE BY MOUTH TWICE DAILY Oral , Taking Escitalopram Oxalate 10 MG Tablet TAKE ONE TABLET BY MOUTH EVERY DAY Oral , Taking Levothyroxine Sodium 88 MCG Capsule 1 capsule in the morning on an empty stomach Orally Once a day , Taking Rosuvastatin Calcium 10 MG Tablet Oral , Medication List reviewed and reconciled with the patient * Allergies: C IPRO (CIPROFLOXACIN HCL TABS): rash - Allergy - Onset Date 2017-07-30, SULFAMETHOXAZOLE-TRIMETHOPRIM: hives - Allergy - Onset Date 2018-08-08. Objective: * Vitals: B P:126/78mm Hg, Ht: 65 in, Wt: 170 lbs, BMI:28.29Index. * Examination: C haperone: Gas Well Drilling Manager Status C haperone present during physical exam. Name: Eddie Barreto Jamila itle: CMA. Martinez eneral Examination: GENERAL APPEARANCE: p leasant, well nourished, in no acute distress. EYES: n on icteric, no pallor. NECK/THYROID: s /p thyroidectomy, no thyromegaly or apparent thyroid nodules . HEART: r egular rate and rhythm, no murmur, gallops, or rubs. LUNGS: n ormal respiratory effort, c lear to auscultation bilaterally. BREASTS: n ipples unremarkable, no axillary adenopathy, no dimpling, no masses palpable bilaterally, nontender, n o nipple discharge, no skin changes. ABDOMEN: s oft, nontender, nondistended, n o masses or hepatosplenomegaly appreciated. G ynecological: BLADDER: n ormal. EXTERNAL GENITALIA: n ormal, no erythema, no skin discoloration. URETHRAL MEATUS: n ormal. URETHRA: n ormal, no masses, non-tender. VAGINA: n o lesions, normal. CERVIX: n o lesions or discharge or bleeding, normal appearing, without evidence of masses or lesions , PAP smear done. UTERUS: n ormal mobility, non-tender, normal size, shape and consistency. ADNEXA: n o masses or tenderness bilaterally. ? Assessment: * Assessment: 1. C ervical smear, as part of routine gynecological examination - Z01.419 (Primary) 2 . S creening mammogram for breast cancer - Z12.31 3 . F amily history of breast cancer in mother - Z80.3 Plan: * Treatment: 2. S creening mammogram for breast cancer I maging: *Screen Mammo b/l w/ Javier and US if needed per protocol 3. F amily history of breast cancer in mother Notes: Patient is interested in intermediate risk MRI screening. Referral To: Reason:Patient is interested in intermediate risk MRI screening due -2024 after mammogram screening in * Follow Up: 1 Year,prn (Reason: Annual) * Billing Information: * Visit Code: [id number] Est PT Annual 65 and over. * Procedure Codes: * Sign off status: Completed Visit Status: C HK (Check Out) true * Provider: Bebo Reed MD Date: 0 11/17/2024 Generated for Farhad durbin/Jaden/Mariellaitting on: 01/10/2025 01:26 PM EDT
--- OUTSIDE RECORDS SUMMARY | 2025-01-10 13:26 | XMS_ITS | Encounter Summary ---
Author Organization [employer] Address [address] [place] [address] Care Team Providers Care Fleet Maintenance Foreman Name Role Phone Unavailable Primary Care Provider Unavailabl e Encounter Details Date Type Department Care Team (Late st Contact Info) Description 06/15/2018 Transcribed Document [facility] [address] [place] [address] Gulshan Lake MD [address] [facility] [address] floor [address] [place] [id number] Social History Tobacco Use Types Packs/Day Years Used Date Smoking Tobacco: Never Assessed Comments Unknown Sex and Gender Information Value Date Recorded Sex Assigned at Not on file Legal Sex Female 5:45 PM CDT Gender Identity Not on file Sexual Orientation Not on file documented as of this encounter Miscellaneous Notes * Cerner Conversion Note - Gulshan Lake MD - 06/15/2018 7:45 AM EST Patient: FLEX OSEI Age: 57 years Sex: Female : 1960 Associated Diagnoses: None Author: ANEL KRUEGER PA Results Review General results Today's results 06/15/2018 5:29 EST Temperature Source Oral Temperature Mode Fahrenheit Temperature, Fahrenheit 97.6 Deg F Clinical Temperature, C 36.4 Deg C Heart Rate Monitored 70 bpm Respiratory Rate 16 Breaths/Min Systolic Blood Pressure 100 mmHg Diastolic Blood Pressure 60 mmHg Mean Arterial Pressure (MAP)-BMDI 72 Health Status Allergies: Allergic Reactions (Selected) Severity Not Documented Ciprofloxacin- Bilateral weakness of legs. Sulfa drugs- Rash., Allergies (2) Active Reaction ciprofloxacin Bilateral weakness of legs sulfa drugs Rash Problem list: All Problems Anxiety / SNOMED CT 58635774 / Confirmed Arthritis / SNOMED CT 9670608 / Confirmed Back pain radiates down right side / SNOMED CT 186876008 / Confirmed Hemorrhoids / SNOMED CT 433262732 / Confirmed Hx of papillary thyroid carcinoma / SNOMED CT 1980688241 / Confirmed Irritable bowel syndrome / SNOMED CT 35435877 / Confirmed Palpitations / SNOMED CT 882352042 / Confirmed hypo Thyroid disease s/p thyroidectomy / SNOMED CT 860876991 / Confirmed Urinary tract infection / SNOMED CT 951309851 / Confirmed Wears glasses / SNOMED CT 261888595 / Confirmed, Active Problems (10) Anxiety Arthritis Back pain radiates down right side Hemorrhoids Hx of papillary thyroid carcinoma hypo Thyroid disease s/p thyroidectomy Irritable bowel syndrome Palpitations Urinary tract infection Wears glasses Subjective feeling better now, some leg pain last night but has improved Denies HUFFMAN, CP ,SOA, Abd pain -flatus, on liquid diet, states not hungry walking to bathroom with minimal assistance Objective VS/Measurements Measurements from flowsheet : Measurements 06/14/2018 15:00 EST Height Source Measured Height Entry Format [place] Height/Length, [place] (ft) 5 ft Height/Length [place] 3.25 Inch CLINICALHEIGHT 160.66 cm [place] Body Weight 53 kg Weight Source Standing scale Weight Entry Format [place] Weight [place] lb 129 lb Weight [place] oz 7 oz CLINICALWEIGHT 58.84 kg Body Surface Area (BSA) 1.61 m2 Body Mass Index 22.8 kg/m2 A/Ox3 abd soft ,NT Lumbar dressing intact ,incision looks well BLE N/V intact with 5./5 strength SCDs on Assessment POD 1 Lumabr fusion and decompression Plan She is still weak and seems to be moving slowly, will have her do therapy today to increase mobility liquid diet for now, advance per flatus reinforce dressing if needed anticipate DC home tomorrow documented in this encounter Plan of Treatment Not on file documented as of this encounter Visit Diagnoses Not on filedocumented in this encounter
--- OUTSIDE RECORDS SUMMARY | 2025-01-10 13:26 | XMS_ITS | Encounter Summary ---
Author Organization [employer] Address [address] [place] [address] Care Team Providers Care Resaw Tailer Name Role Phone Unavailable Primary Care Provider Unavailabl e Encounter Details Date Type Department Care Team (Late st Contact Info) Description 06/15/2018 Transcribed Document [facility] [address] [place] [address] Gulshan Lake MD 8579 [facility] 2nd floor [place] [phone] Social History Tobacco Use Types Packs/Day Years Used Date Smoking Tobacco: Never Assessed Comments Unknown Sex and Gender Information Value Date Recorded Sex Assigned at Not on file Legal Sex Female 5:45 PM CDT Gender Identity Not on file Sexual Orientation Not on file documented as of this encounter Miscellaneous Notes * Cerner Conversion Note - Gulshan Lake MD - 06/15/2018 12:33 PM EST Patient: FLEX OSEI Age: 57 years Sex: Female : 1960 Associated Diagnoses: None Author: ANEL KRUEGER PA Results Review General results Today's results 06/15/2018 10:53 EST Sodium Level 141 mmol/L Potassium Level 3.9 mmol/L Chloride Level 106 mmol/L Carbon Dioxide Level 29 mmol/L Anion Gap 10 Glucose Level 81 mg/dL Blood Urea Nitrogen 11 mg/dL Creatinine Level 0.80 mg/dL eGFR 89 mL/min/1.73m2 eGFR NonAfrican 74 mL/min/1.73m2 Bun/Creatinine 13.8 Calcium Level 8.9 mg/dL WBC 8.2 K/uL RBC 3.56 Million/uL LOW Hgb 11.1 g/dL LOW Hct 34.3 % MCV 96.3 fL HI MCH 31.2 pg MCHC 32.4 Gram/dL Platelet Count 245 K/uL MPV 9.7 fL RDW 12.4 % Neut % 71.6 % HI Neut # 5.83 K/uL Lymph % 20.5 % Lymph # 1.67 x10(3)/uL [place] % 7.1 % [place] # 0.58 K/uL Eos % 0.2 % Eos # 0.02 x10(3)/uL Baso % 0.4 % Baso # 0.03 x10(3)/uL Slide Review No IG# 0.02 x10(3)/uL IG% 0.20 % Discharge Information DATE OF PROCEDURE: PROCEDURE: 1. L4 to S1 posterolateral fusion. 2. Laminectomy, L5-S1, decompression of right L5 and S1 nerve roots. 3. Laminectomy, L4-5, decompression of L4 and L5 nerve roots. 4. Posterior instrumentation, L4 to S1. 5. Application of interbody device, L5-S1. 6. Use of autograft and allograft bone for L5-S1 anteriorly and posterolateral gutter from L4 to S1. SURGEON: Gulshan Lake M.D. MANAGER EMERGENCY: Keshav Galindo. ESTIMATED BLOOD LOSS: 200 mL. PREOPERATIVE DIAGNOSIS(ES): POSTOPERATIVE DIAGNOSIS(ES): BRIEF MEDICAL HISTORY: Patient is a 57-year-old, with spondylolisthesis at L5-S1. She had spinal stenosis and severe leg pain. She failed multiple modes of conservative treatment. She was informed of the risks, benefits and alternatives of the above-mentioned procedure and wished to proceed. Physical Examination VS/Measurements Vital Signs/Vital Measures 06/15/2018 9:01 EST Oxygen Therapy Mode Nasal cannula Oxygen Flow Rate 2 Liter/Min 06/15/2018 5:29 EST Temperature Source Oral Temperature Mode Fahrenheit Temperature, Fahrenheit 97.6 Deg F Clinical Temperature, C 36.4 Deg C Heart Rate Monitored 70 bpm Respiratory Rate 16 Breaths/Min Systolic Blood Pressure 100 mmHg Diastolic Blood Pressure 60 mmHg Mean Arterial Pressure (MAP)-BMDI 72 06/15/2018 2:03 EST Temperature Source Oral Temperature Mode Fahrenheit Temperature, Fahrenheit 97.8 Deg F Clinical Temperature, C 36.6 Deg C Heart Rate Monitored 63 bpm Respiratory Rate 16 Breaths/Min Systolic Blood Pressure 134 mmHg Diastolic Blood Pressure 70 mmHg Mean Arterial Pressure (MAP)-BMDI 88 Oxygen Saturation 97 % 06/14/2018 22:44 EST Temperature Source Oral Temperature Mode Fahrenheit Temperature, Fahrenheit 98 Deg F Clinical Temperature, C 36.7 Deg C Heart Rate Monitored 64 bpm Systolic Blood Pressure 117 mmHg Diastolic Blood Pressure 77 mmHg Mean Arterial Pressure (MAP)-BMDI 90 Oxygen Saturation 100 % Oxygen Therapy Mode Nasal cannula Oxygen Flow Rate 2 Liter/Min 06/14/2018 20:16 EST Oxygen Therapy Mode Nasal cannula Oxygen Flow Rate 2 Liter/Min 06/14/2018 19:30 EST Temperature Source Oral Temperature Mode Fahrenheit Temperature, Fahrenheit 98 Deg F Clinical Temperature, C 36.7 Deg C Heart Rate Monitored 74 bpm Respiratory Rate 16 Breaths/Min Systolic Blood Pressure 135 mmHg Diastolic Blood Pressure 72 mmHg Mean Arterial Pressure (MAP)-BMDI 86 Oxygen Saturation 99 % Oxygen Therapy Mode Nasal cannula Oxygen Flow Rate 2 Liter/Min 06/14/2018 14:30 EST Heart Rate Monitored 106 bpm HI Systolic Blood Pressure 114 mmHg Diastolic Blood Pressure 51 mmHg LOW 06/14/2018 13:35 EST Heart Rate Monitored 69 bpm Respiratory Rate 16 Breaths/Min Systolic Blood Pressure 128 mmHg Diastolic Blood Pressure 64 mmHg Mean Arterial Pressure (MAP)-BMDI 89 Oxygen Saturation 100 % Oxygen Therapy Mode Nasal cannula Oxygen Flow Rate 2 Liter/Min 06/14/2018 13:30 EST Heart Rate Monitored 68 bpm Respiratory Rate 24 Breaths/Min HI Systolic Blood Pressure 132 mmHg Diastolic Blood Pressure 67 mmHg Mean Arterial Pressure (MAP)-BMDI 81 Oxygen Saturation 100 % Oxygen Therapy Mode Nasal cannula Oxygen Flow Rate 2 Liter/Min 06/14/2018 13:25 EST Heart Rate Monitored 70 bpm Respiratory Rate 30 Breaths/Min HI Systolic Blood Pressure 124 mmHg Diastolic Blood Pressure 75 mmHg Mean Arterial Pressure (MAP)-BMDI 94 Oxygen Saturation 100 % Oxygen Therapy Mode Nasal cannula Oxygen Flow Rate 2 Liter/Min 06/14/2018 13:20 EST Heart Rate Monitored 78 bpm Respiratory Rate 28 Breaths/Min HI Systolic Blood Pressure 113 mmHg Diastolic Blood Pressure 71 mmHg Mean Arterial Pressure (MAP)-BMDI 88 Oxygen Saturation 100 % Oxygen Therapy Mode Nasal cannula Oxygen Flow Rate 2 Liter/Min 06/14/2018 13:15 EST Temperature Source Oral Temperature Mode Fahrenheit Temperature, Fahrenheit 97.5 Deg F Clinical Temperature, C 36.4 Deg C Heart Rate Monitored 80 bpm Respiratory Rate 34 Breaths/Min HI Systolic Blood Pressure 109 mmHg Diastolic Blood Pressure 70 mmHg Mean Arterial Pressure (MAP)-BMDI 85 Oxygen Saturation 100 % Oxygen Therapy Mode Nasal cannula Oxygen Flow Rate 2 Liter/Min 06/14/2018 13:10 EST Heart Rate Monitored 84 bpm Respiratory Rate 30 Breaths/Min HI Systolic Blood Pressure 108 mmHg Diastolic Blood Pressure 62 mmHg Mean Arterial Pressure (MAP)-BMDI 78 Oxygen Saturation 100 % Oxygen Therapy Mode Simple mask Oxygen Flow Rate 6 Liter/Min 06/14/2018 13:05 EST Heart Rate Monitored 90 bpm Respiratory Rate 32 Breaths/Min HI Systolic Blood Pressure 105 mmHg Diastolic Blood Pressure 54 mmHg LOW Mean Arterial Pressure (MAP)-BMDI 75 Oxygen Saturation 100 % Oxygen Therapy Mode Simple mask Oxygen Flow Rate 6 Liter/Min 06/14/2018 13:00 EST Heart Rate Monitored 106 bpm HI Respiratory Rate 40 Breaths/Min HI Systolic Blood Pressure 94 mmHg Diastolic Blood Pressure 55 mmHg LOW Mean Arterial Pressure (MAP)-BMDI 70 Oxygen Saturation 100 % Oxygen Therapy Mode Simple mask Oxygen Flow Rate 6 Liter/Min 06/14/2018 12:55 EST Heart Rate Monitored 116 bpm HI Respiratory Rate 27 Breaths/Min HI Systolic Blood Pressure 96 mmHg Diastolic Blood Pressure 53 mmHg LOW Mean Arterial Pressure (MAP)-BMDI 69 Oxygen Saturation 100 % Oxygen Therapy Mode Simple mask Oxygen Flow Rate 6 Liter/Min 06/14/2018 12:50 EST Temperature Source Temporal artery scanning Temperature Mode Fahrenheit Temperature, Fahrenheit 98 Deg F Clinical Temperature, C 36.7 Deg C Heart Rate Monitored 120 bpm HI Respiratory Rate 24 Breaths/Min HI Systolic Blood Pressure 118 mmHg Diastolic Blood Pressure 61 mmHg Mean Arterial Pressure (MAP)-BMDI 84 Oxygen Saturation 100 % Oxygen Therapy Mode Simple mask Oxygen Flow Rate 6 Liter/Min , Measurements from flowsheet : Measurements 06/14/2018 15:00 EST Height Source Measured Height Entry Format [place] Height/Length, TURKMEN (ft) 5 ft Height/Length TURKMEN 3.25 Inch CLINICALHEIGHT 160.66 cm [place] Body Weight 53 kg Weight Source Standing scale Weight Entry Format [place] Weight [place] lb 129 lb Weight [place] oz 7 oz CLINICALWEIGHT 58.84 kg Body Surface Area (BSA) 1.61 m2 Body Mass Index 22.8 kg/m2 , Vitals Signs (last 24 hrs) Last Charted Minimum Maximum Temp 97.6 (JUN 15:) 97.6 (JUN 15:) 98 (JUN 14 12:50) Mon HR 70 (JUN 15:) 63 (JUN 15 02:03) 120 (JUN 14 12:50) Resp Rate 16 (JUN 15:) 16 (JUN 14 13:35) H 40 (JUN 14 13:00) SBP 100 (JUN 15 05:29) 94 (JUN 14 13:00) 135 (JUN 14 19:30) DBP 60 (JUN 15 05:29) L 51 (JUN 14 14:30) 77 (JUN 14 22:44) MAP 72 (JUN 15:) 69 (JUN 14 12:55) 94 (JUN 14 13:25) SpO2 97 (JUN 15:03) 97 (JUN 15 02:03) 100 (JUN 14 12:50) General: Alert and oriented. Eye: Extraocular movements are intact. Cardiovascular: Normal peripheral perfusion. Gastrointestinal: Soft, Non-tender, Non-distended. Musculoskeletal: Normal range of motion. Integumentary: Warm, Dry, [place]. Neurologic: Alert, Oriented, Normal sensory, Normal motor function, No focal deficits. Psychiatric: Cooperative. Hospital Course Patient is doing well after her Lumbar decompression and fusion. Pain is under control. She's been discharged on physical therapy and she is moving well. She's not been eating agent, clear liquid diet aggressive bowel sounds are present. Vital signs Are stable laboratory values are normal. Discharge Plan Discharge home. Restrictions: No heavy lifting, bending, twisting. Keep incision clean and dry, may shower but do not submerge incision. Medications: Resume home medications, new medication for pain control, Percocet 5/325 one to 2 by mouth every 4-6 hours when necessary pain Follow-up: With Dr. Lake in 2 weeks' time documented in this encounter Plan of Treatment Not on file documented as of this encounter Visit Diagnoses Not on filedocumented in this encounter
--- OUTSIDE RECORDS SUMMARY | 2025-01-10 13:26 | XMS_ITS | Patient Health Record ---
Author Organization [facility] Address [address] [place] [address] Care Team Providers Care Die Cutter Name Role Phone Nicol Reed Unavailable [phone] Allergies Allergen (clinical drug ingredient) Drug/Non Drug Allergy documented on EMR Reaction Allergy Type Onset Date Status CIPRO (CIPROFLOXACIN HCL TABS) rash Drug Allergy 07/30/2017 Active sulfamethoxazole / trimethoprim SULFAMETHOXAZOLE-TR IMETHOPRIM hives Drug Allergy 08/08/2018 Active Results Component Value Reference Range Notes Pap w/reflex HPV Reviewed date:11/21/2024 05:03:24 PM Interpretation: Performing Lab:[facility] L[facility] - EDMUNDO CLIA ID [id number], [address], [address], [place] [address], Director - Ajit Regalado MD Notes/Report: Any Nucleic Acid Amplification testing is performed on the [employer] Platform [place]. Diagnosis: Negative for intraepithelial lesion or malignancy. AP results FINAL COOK ICE CREAM CYTOLOGY REPORT DIAGNOSIS: Negative for intraepithelial lesion or malignancy. Specimen Adequacy: Satisfactory for interpretation with endocervical/transformat ion zone component absent, history noted. Pertinent Clinical History/History of Surgery: Not provided Collection Technique: Bucklin-Spatula Results of Last Pap: negative LMP: unknown [...] imaging, the slide was reviewed by a Gear Lapping Machine Operator and/or Pathologist. Negative Educational Note: The pap screening test aids in the detection of premalignant and malignant states of the cervix. False positive and negative results may occur. It is not a diagnostic test. If abnormal cells are reported, follow-up based on current clinical guidelines and/or clinical consideration is recommended. Bibiana Altman Gear Lapping Machine Operator CPT Codes: 23043 ICD Codes: Z01.419 Reason For Referral Reason 07/19 Patient is int erested in intermediate risk MRI screening due after mammogram screening in Diagnosis 1 Family history of br east cancer in mother (Z80.3) [facility] Ref[facility] First Name [facility] Referring Provider Last Name [facility] Referring Provider Speciality OB - Gynec ology Referral Priority Routine Reason Screening Bilateral MMG- U/S if needed Diagnosis 1 Screening mammogram for breast cancer (Z12.31) [facility] Referring Provider First Name [facility] Referring Provider Last Name [facility] Referral Priority Routine Medications Medication SIG (Take, Route, Frequency, Duration) [...] Tobacco Use/Smoking Are you a former smoker Problems Problem Type SNOMED Code ICD Code Onset Dates Problem Status W/U Status Risk Notes Problem Cervical smear, as part of routine gynecological examination (Z01.419) 0 Active confirmed Annual without abnormal findings Vital Signs Blood pressure diastolic 78 mm Hg 11/17/2024 Height 65 in 11/17/2024 Blood pressure systolic 126 mm Hg 11/17/2024 Weight 170 lbs 11/17/2024 BMI 28.29 kg/m2 11/17/2024 Encounters Encounter Location Date Provider Diagnosis [facility] [address] [place] [address] 11/17/2024 Nicol Reed Screening mammogram for breast cancer Z12.31 ; Cervical smear, as part of routine gynecological examination Z01.419 and Family history of breast cancer in mother Z80.3 Assessments Encounter Date Diagnosis (ICD Code) Assessment Notes Treatment Notes Treatment Clinical Notes Section Notes 11/17/2024 Cervical smear, as part of routine gynecological examination (ICD-10 - Z01.419) 11/17/2024 Screening mammogram for breast cancer (ICD-10 - Z12.31) 11/17/2024 Family history of breast cancer in mother (ICD-10 - Z80.3) Patient is interested in intermediate risk MRI screening. Plan Of Treatment Pending Test Test Name Order Date *Screen Mammo b/l w/ Javier and US if need ed per protocol 11/17/2024 Next Appt Details Provider Name:Nicol Brianna, 11/19/2025 02:45:00 PM, [address], [place], [address], Insurance Providers Payer Name Payer Address Payer Phone Subscriber Number Group Number Insured Name Patient Relationship to Insured Coverage Start Date Coverage End Date Allie KUNZ [address] [place] [address] [id number] Mir White Spouse - patient is the spouse of the insured Medical (General) History Medical History History ICD Code IBS Thyroid CA arthritis gall bladder disease IBS fibromyalgia elevated cholesterol Surgical History Surgery Date(Month/Year) Tubal 1986 thyroidectomy back surgery foot surgery cholecystectomy Hospitalization History Reason Date(Month/Year) thyroidectomy childbirth
--- OUTSIDE RECORDS SUMMARY | 2025-01-10 13:26 | XMS_ITS | Encounter Summary ---
Author Organization [employer] Address [address] [place] [address] Care Team Providers Care Tear Down Worker Name Role Phone Unavailable Primary Care Provider Unavailabl e Encounter Details Date Type Department Care Team (Late st Contact Info) Description 06/14/2018 Transcribed Document [facility] 1 [place] [address] Gulshan Lake MD [address] [facility] 2nd floor [place] [phone] Social History Tobacco Use Types Packs/Day Years Used Date Smoking Tobacco: Never Assessed Comments Unknown Sex and Gender Information Value Date Recorded Sex Assigned at Not on file Legal Sex Female 5:45 PM CDT Gender Identity Not on file Sexual Orientation Not on file documented as of this encounter Miscellaneous Notes * Cerner Conversion Note - Gulshan Lake MD - 06/14/2018 11:01 AM EST Patient: FLEX OSEI Age: 57 years Sex: Female : 1960 Associated Diagnoses: None Author: VASYL EDGAR APRN Chief Complaint back, RLE pain Review of Systems ROS reviewed as documented in chart no change since last seen by surgeon Health Status Allergies: Allergic Reactions (Selected) Severity Not Documented Ciprofloxacin- Bilateral weakness of legs. Sulfa drugs- Rash., Allergies (2) Active Reaction ciprofloxacin Bilateral weakness of legs sulfa drugs Rash Current medications: (Selected) Documented Medications Documented Flexeril: 5 mg, Oral, At Bedtime, 0 Refill(s) Lexapro: 10 mg, Oral, At Bedtime, 0 Refill(s) Tylenol 8 HR Arthritis Pain: 650 mg, Oral, Q8H, PRN: Arthritis, 0 Refill(s) levothyroxine: 88 mcg, Oral, Daily, 0 Refill(s) multivitamin: 1 Tab, Oral, Daily, 0 Refill(s) raNITIdine: 150 mg, Oral, Daily, 0 Refill(s), Home Medications (6) Active Flexeril 5 mg, Oral, At Bedtime levothyroxine 88 mcg, Oral, Daily Lexapro 10 mg, Oral, At Bedtime multivitamin 1 Tab, Oral, Daily raNITIdine 150 mg, Oral, Daily Tylenol 8 HR Arthritis Pain 650 mg, PRN, Oral, Q8H , No qualifying data available Problem list: All Problems Wears glasses / SNOMED CT 177446950 / Confirmed Urinary tract infection / SNOMED CT 167650028 / Confirmed hypo Thyroid disease s/p thyroidectomy / SNOMED CT 552892936 / Confirmed Palpitations / SNOMED CT 817717237 / Confirmed Irritable bowel syndrome / SNOMED CT 32423653 / Confirmed Hx of papillary thyroid carcinoma / SNOMED CT 8392139713 / Confirmed Hemorrhoids / SNOMED CT 152818857 / Confirmed Back pain radiates down right side / SNOMED CT 366409078 / Confirmed Arthritis / SNOMED CT 8507727 / Confirmed Anxiety / SNOMED CT 99222000 / Confirmed, Active Problems (10) Anxiety Arthritis Back pain radiates down right side Hemorrhoids Hx of papillary thyroid carcinoma hypo Thyroid disease s/p thyroidectomy Irritable bowel syndrome Palpitations Urinary tract infection Wears glasses Histories Past Medical History: No active or resolved past medical history items have been selected or recorded. Family History: No family history items have been selected or recorded. Procedure history: THYROIDECTOMY TOTAL/COMPLETE (85491) in 2005 at 44 Years. LAPAROSCOPY SURG CHOLECYSTECTOMY (32491) in 2002 at 41 Years. bilateral tubal ligation in 1986 at 25 Years. excision of bone right foot 1srt joint of great toe. Social History Social & Psychosocial Habits Alcohol 06/07/2018 Alcohol Use History, Social Habits No Employment/School 06/07/2018 Status: homemaker Home/Environment 06/07/2018 Lives with: Spouse Substance Abuse 06/07/2018 Recreational Drug Use History No Recreational Drug Use Last 12 Months No Tobacco 06/07/2018 Smoking Status Never (less than 100 in l Smokeless Tobacco Status Never Smokeless Tobacco Use History None Years of Tobacco Use 0 . Physical Examination VS/Measurements No qualifying data available General: Alert and oriented, No acute distress. Eye: Pupils are equal, round and reactive to light, Extraocular movements are intact, glasses. HENT: Normocephalic, Normal hearing. Neck: Supple, Non-tender. Respiratory: Lungs are clear to auscultation, Respirations are non-labored. Cardiovascular: Normal rate, Regular rhythm, No murmur, No gallop, No edema. Gastrointestinal: Soft, Non-tender. Genitourinary: No costovertebral angle tenderness. Lymphatics: No lymphadenopathy neck, axilla, groin. Musculoskeletal: painful ROM of back, RLE weakness. Integumentary: Warm, Dry, [place]. Neurologic: Alert, Oriented. Psychiatric: Cooperative, Appropriate mood & affect. Review / Management Results review: Labs (Last four charted values) WBC 5.7 (JUN 07) HB 12.1 (JUN 07) HCT 36.6 (JUN 07) Plt 240 (JUN 07) Na 140 (JUN 07) K 4.0 (JUN 07) Cl 106 (JUN 07) CO2 28 (JUN 07) BUN 17 (JUN 07) Cr 0.80 (JUN 07) Glu R 88 (JUN 07) Ca 9.0 (JUN 07) PT 10.4 (JUN 07) INR 1.0 (JUN 07) AST 23 (JUN 07) ALT 32 (JUN 07) ALK P 79 (JUN 07) T Bili 0.7 (JUN 07) PTN 7.1 (JUN 07) ALB 4.1 (JUN 07) . Impression and Plan Condition: Stable. documented in this encounter Plan of Treatment Not on file documented as of this encounter Visit Diagnoses Not on filedocumented in this encounter
--- OUTSIDE RECORDS SUMMARY | 2025-01-10 13:26 | XMS_ITS | Encounter Summary ---
Author Organization [employer] Address [address] [place] [address] Care Team Providers Care Cord Maker Name Role Phone Unavailable Primary Care Provider Unavailabl e Encounter Details Date Type Department Care Team (Late st Contact Info) Description 06/14/2018 Transcribed Document [facility] 1 [place] [address] Gulhsan Lake MD [address] [facility] 2nd floor [place] [phone] Social History Tobacco Use Types Packs/Day Years Used Date Smoking Tobacco: Never Assessed Comments Unknown Sex and Gender Information Value Date Recorded Sex Assigned at Not on file Legal Sex Female 5:45 PM CDT Gender Identity Not on file Sexual Orientation Not on file documented as of this encounter Miscellaneous Notes * Cerner Conversion Note - Gulshan Lake MD - 06/14/2018 1:46 PM EST DATE OF PROCEDURE: PROCEDURE: 1. L4 to [...] L4 to S1. SURGEON: Gulshan Lake M.D. TAR HEATER: Keshav Galindo. ESTIMATED BLOOD LOSS: 200 mL. PREOPERATIVE DIAGNOSIS(ES): POSTOPERATIVE DIAGNOSIS(ES): BRIEF MEDICAL HISTORY: Patient is a 57-year-old, with spondylolisthesis at L5-S1. She had spinal stenosis and severe leg pain. She failed multiple modes of conservative treatment. She was informed of the risks, benefits and alternatives of the above-mentioned procedure and wished to proceed. FINDINGS: Patient was taken to the operating room, placed in prone position. After sterile prep and drape, administration of preoperative antibiotics, a midline incision was made over the L4 to S1 interspace. The posterior elements were subperiosteally exposed. We placed a few Expedium pedicle screws at L4, L5 and S1 bilaterally. C-arm was used to verify appropriate position. Next, we performed a laminectomy at L5-S1. We freed up the L5 and S1 nerve roots. The S1 nerve root on the right side was clearly irritated, but afterwards we could easily pass the instrument along the L5 and S1 nerve roots ensuring they were adequately decompressed. Next, we performed a laminectomy at L4-5. We removed ligamentum flavum and then could easily pass the instrument along the L4 and L5 nerve roots. We did place the interbody device at L5-S1 where she had a spondylolisthesis to provide anterior support. This was packed with autograft and allograft bone in and around the cage. Next, we placed 5x5 rods followed by end caps. We tightened the end caps with a torque limiter. C-arm was used to verify appropriate position of all implants, and the wound was thoroughly irrigated. We decorticated the posterolateral gutters and placed the remaining autograft and allograft bone. We closed the wound over deep drain with Vicryl and emily. She was taken to Recovery in sterile dressing. There was no complication. POSTOPERATIVE PLAN: Plan is to admit her to the floor for medical management, pain control, and physical therapy. Gulshan Lake M.D. Dict: 06/14/2018 12:46:52 Trans: 06/14/2018 13:29:30 CC1: Gulshan Lake M.D. documented in this encounter Plan of Treatment Not on file documented as of this encounter Visit Diagnoses Not on filedocumented in this encounter
--- OUTSIDE RECORDS SUMMARY | 2025-01-10 13:26 | XMS_ITS | Referral Summary ---
Author Organization [employer] Address [address] [place] [address] Care Team Providers Care Burn Nurse Name Role Phone Unavailable Primary Care Provider Unavailabl e Social History Tobacco Use Types Packs/Day Years Used Date Smoking Tobacco: Never Assessed Comments Unknown Sex and Gender Information Value Date Recorded Sex Assigned at Not on file Legal Sex Female 5:45 PM CDT Gender Identity Not on file Sexual Orientation Not on file Plan of Treatment Not on file
--- OUTSIDE RECORDS SUMMARY | 2025-01-10 13:26 | XMS_ITS | Clinical Summary ---
Author Organization [employer] Address [address] [place] [address] Care Team Providers Care Supervisor Refractory Products Name Role Phone Unavailable Primary Care Provider [...]
--- NOTE | 2025-01-10 13:28 | MM_ITS ---
PROCEDURE INFORMATION: Exam: MG Bilateral Screening 3D Mammography Exam date and time: 01/10/2025 1:41 PM Age: 64 years old Clinical indication: Screening examination. Her mother had breast cancer at age 80. TECHNIQUE: Imaging protocol: Bilateral Screening tomosynthesis and 2D mammography including computer-aided detection (CAD) when performed. COMPARISON: 1. MG MM DIG SCREENING MAMM BI W/CAD 01/05/2024 2:52 PM 2. MG MM DIG SCREENING MAMM BI W/CAD 11/17/2022 3:26 PM 3. MG MM DIG SCREENING MAMM BI W/CAD 10/27/2021 1:33 PM 4. MG MM DIG SCREENING MAMM BI W/CAD 10/22/2020 3:29 PM FINDINGS: MAMMOGRAPHY: Breast composition: There are scattered areas of fibroglandular density. Mass: None. Architectural distortion: None. Calcifications: No suspicious calcifications. Asymmetric density: None. Skin thickening: None. Axillary adenopathy: None. IMPRESSION: No mammographic evidence of malignancy. Annual screening is recommended unless otherwise clinically indicated. ASSESSMENT: BI-RADS Category 1: Negative.
== END 2025-01-10 23:59 | disposition home or self-care (01) ==
LOC: RAD 13:23
PROVIDERS: PCP Internal Medicine Adolescent Medicine; Visit Provider Obstetrics & Gynecology Gynecology
DX: Z12.31 Encounter for screening mammogram for malignant neoplasm of breast (principal); R92.323 Mammographic fibroglandular density, bilateral breasts; Z80.3 Family history of malignant neoplasm of breast
CPT/HCPCS: 77063; 77067